=== PATIENT | female | born 1990 | race Two or more races ===

== ENCOUNTER 2018-06-24 18:03 | Emergency (ER) | payer OTHER ==
[~2018-06-24] VITALS: Ht 170.2 cm; Wt 98.3 kg
[~2018-06-24 18:03] MED LIST: ASPI-621 PO
[2018-06-24 18:51] LABS: BASOPHILS # (AUTO) 0.05 x10^3/uL (0-0.1); BASOPHILS % (AUTO) 1 % (0-1); EOSINOPHILS # (AUTO) 0.14 x10^3/uL (0-0.4); EOSINOPHILS % (AUTO) 1 % (1-7); LYMPHOCYTES # (AUTO) 2.77 x10^3/uL (1-3.4); LYMPHOCYTES % (AUTO) 27 % (22-44); MD NO; MEAN CORPUSCULAR HEMOGLOBIN 30.7 pg (27.0-34.8); MEAN CORPUSCULAR VOLUME 90.3 fL (80-100); MEAN PLATELET VOLUME 9.7 fL (7.4-10.4); MONOCYTES # (AUTO) 0.73 x10^3/uL (0.2-0.8); MONOCYTES % (AUTO) 7 % (2-9); NEUTROPHILS # (AUTO) 6.49 x10^3/uL (1.8-6.8); NEUTROPHILS % (AUTO) 64 % (42-75); PLATELET COUNT 301 x10^3/uL (130-400); RED BLOOD COUNT 4.54 x10^6/uL (3.82-5.3); RED CELL DISTRIBUTION WIDTH 12.9 % (9.6-15.2)
[2018-06-24 18:53] LABS: MICROSCOPIC NOT IND
[2018-06-24] MEDS ORDERED: ONDANSETRON 2MG/ML, 2ML ONE (18:55)
[2018-06-24 18:56] LABS: CULTURE INDICATED? NO
[2018-06-24] MEDS ORDERED: SODIUM CHLORIDE 0.9% 1,000ML IVBOLUS ONE (19:00)
[2018-06-24] MEDS ORDERED: ONDANSETRON 2MG/ML, 2ML IVPush ONE (19:00)
[2018-06-24 19:04] LABS: ALANINE AMINOTRANSFERASE 26 U/L (12-78); ALBUMIN 3.5 g/dL (3.4-5.0); ANION GAP 7 mmol/L (5-15); CALCIUM 9.1 mg/dL (8.5-10.1); CHLORIDE 107 mmol/L (98-107); CREATININE 0.89 mg/dL (0.55-1.02)
[2018-06-24 19:06] LABS: ALKALINE PHOSPHATASE 84 U/L (45-117); BILIRUBIN,TOTAL 0.2 mg/dL (0.2-1.0); TOTAL PROTEIN 8.2 g/dL (6.4-8.2)
[2018-06-24 19:38] LABS: HCG UR SG 1.019 (1.003-1.030)
[2018-06-24] MEDS ORDERED: MECLIZINE CHEWABLE 25 MG TAB PO ONE (20:30)
[2018-06-24] MEDS ORDERED: MECLIZINE CHEWABLE 25 MG TAB ONE (20:44)
[2018-06-24 20:55] VITALS: BP 104/64
== END 2018-06-24 20:58 | disposition home or self-care (01) ==
LOC: ED 18:47
DX: R19.7 Diarrhea, unspecified (principal); E86.0 Dehydration; R42 Dizziness and giddiness
CPT/HCPCS: 36415; 80053; 81003; 81025; 85025; 93005; 96361; 96374; 99285; J2405; J7030

== ENCOUNTER 2018-09-05 10:29 | Emergency (ER) | payer OTHER ==
[~2018-09-05] VITALS: Ht 170.2 cm; Wt 90.0 kg
[~2018-09-05 10:29] MED LIST changes: -ASPI-621 PO; +ASPI81TA45 PO
--- NOTE | 2018-09-05 10:39 | NUR ---
REPORT FROM GERSON BOOTH, ASSUME CARE OF PT AT THIS TIME. ERP IN TO SEE PT.
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
[2018-09-05] MEDS ORDERED: KETOROLAC 30 MG/1 ML ONE (10:51)
[2018-09-05] MEDS ORDERED: ONDANSETRON 2MG/ML, 2ML ONE (10:51)
[2018-09-05] MEDS ORDERED: HYDROmorphone 2 MG/ML, 1ML ONE (10:52)
[2018-09-05] MEDS ORDERED: ONDANSETRON 2MG/ML, 2ML IVPush ONE (11:00)
[2018-09-05] MEDS ORDERED: HYDROmorphone 1 MG/ML, 1ML IVPush PRN (11:00)
[2018-09-05] MEDS ORDERED: KETOROLAC 30 MG/1 ML IV ONE (11:00)
--- NOTE | 2018-09-05 11:00 | NUR ---
PT MEDICATED FOR "100"/10 PAIN PER ERP ORDER. PT IMMEDIATELY ASLEEP BUT AROUSABLE. PULSE OX READING DECREASE TO 89%, OXYGEN PLACED AT 3LITERS VIA NC WITH SAT IMPROVEMENT TO 94%. FAMILY/COWORKERS AT BS UPDATED ON POC. CALL LIGHT WITHIN REACH, WARM BLANKET PROVIDED.
--- NOTE | 2018-09-05 11:17 | NUR ---
[place] RN: PULLED INTO ROOM BY . PT APPEARS TO BE RIGID, LIPS CYANOTIC, AND PULSE OX OF 80%. PT LOGGED ROLLED TO RIGHT SIDE. RIDGIDITY LAST 30 SECONDS, O2 INCREASED TO 6 LPM VIA NC. POST EPISODE. PT LETHARGIC BUT RESPONSIVE TO PAIN. O2 SAT AT 96% ON 4 LPM VIA NC. SEIZURE PRECAUTIONS IN PLACE AND DR. PIERRE MADE AWARE OF THE SITUATION.
--- NOTE | 2018-09-05 11:29 | NUR ---
PT TO CT.
--- NOTE | 2018-09-05 11:52 | NUR ---
PT BACK FROM CT. PT SLEEPING SOUNDLY. VSS/UPDATED IN COMPUTER. CALL LIGHT WITHIN REACH.
--- NOTE | 2018-09-05 12:21 | NUR ---
ALL RESULTS BACK, PT FOR RECHECK.
--- NOTE | 2018-09-05 12:58 | NUR ---
PT ASSISTED UP TO BSC, PT ABLE TO BEAR WEIGHT WITH 2 PERSON ASSIST AT THIS TIME.. WILL CONTINUE TO MONITOR AND ASSESS FOR SAFE DISCHARGE. WORK COMP PAPERS TO ERP.
[2018-09-05 14:04] VITALS: BP 122/64
== END 2018-09-05 14:08 | disposition home or self-care (01) ==
LOC: ED 14:03
DX: G89.11 Acute pain due to trauma (principal); M54.5 Low back pain; M25.551 Pain in right hip; W18.30XA Fall on same level, unspecified, initial encounter; Y93.89 Activity, other specified; Y92.69 Other specified industrial and construction area as the place of occurrence of the external cause; Y99.8 Other external cause status
CPT/HCPCS: 70450; 72131; 73700; 96374; 96375; 99284; J1170; J1885; J2405

== ENCOUNTER 2018-09-10 09:00 | Emergency (ER) | payer OTHER ==
[~2018-09-10] VITALS: Ht 170.2 cm; Wt 99.1 kg
[2018-09-10 09:20] VITALS: BP 114/74
== END 2018-09-10 11:56 | disposition home or self-care (01) ==
LOC: ED 11:50
DX: S39.012A Strain of muscle, fascia and tendon of lower back, initial encounter (principal); M54.41 Lumbago with sciatica, right side; W18.30XA Fall on same level, unspecified, initial encounter; Y93.89 Activity, other specified; Y92.89 Other specified places as the place of occurrence of the external cause; Y99.8 Other external cause status
CPT/HCPCS: 99281

== ENCOUNTER 2019-01-28 08:20 | Emergency (ER) | payer OTHER ==
[~2019-01-28] VITALS: Ht 170.2 cm; Wt 97.7 kg
--- NOTE | 2019-01-28 08:57 | NUR ---
SOFTWARE TEST DEVELOPER: PT TO ROOM FROM [facility], AMBULATORY WITH STEADY GAIT
[2019-01-28] MEDS ORDERED: ONDANSETRON 2MG/ML, 2ML IVPush ONE (09:30)
[2019-01-28] MEDS ORDERED: KETOROLAC 30 MG/1 ML IVPush ONE (09:30)
[2019-01-28] MEDS ORDERED: SODIUM CHLORIDE 0.9% 1,000ML IVBOLUS ONE (09:30)
[2019-01-28] MEDS ORDERED: DICYCLOMINE 10 MG/ML, 2ML IM ONE (09:30)
[2019-01-28] MEDS ORDERED: DICYCLOMINE 10 MG/ML, 2ML ONE (09:48)
[2019-01-28] MEDS ORDERED: ONDANSETRON 2MG/ML, 2ML ONE (09:48)
[2019-01-28] MEDS ORDERED: KETOROLAC 30 MG/1 ML ONE (09:48)
[2019-01-28 09:55] LABS: MD NO
[2019-01-28 10:05] LABS: ALBUMIN 3.3 g/dL (3.4-5.0); ANION GAP 6 mmol/L (5-15); CALCIUM 8.7 mg/dL (8.5-10.1); CHLORIDE 107 mmol/L (98-107)
[2019-01-28 10:12] LABS: ALANINE AMINOTRANSFERASE 19 U/L (12-78); ALKALINE PHOSPHATASE 88 U/L (45-117); BILIRUBIN,TOTAL 0.4 mg/dL (0.2-1.0); CREATININE 0.81 mg/dL (0.55-1.02); TOTAL PROTEIN 8.4 g/dL (6.4-8.2)
[2019-01-28 10:22] LABS: MICROSCOPIC NOT IND
[2019-01-28 10:28] LABS: CULTURE INDICATED? NO
[2019-01-28 10:42] LABS: BASOPHILS # (AUTO) 0.03 x10^3/uL (0-0.1); BASOPHILS % (AUTO) 0 % (0-1); EOSINOPHILS # (AUTO) 0.01 x10^3/uL (0-0.4); EOSINOPHILS % (AUTO) 0 % (1-7); LYMPHOCYTES # (AUTO) 1.85 x10^3/uL (1-3.4); LYMPHOCYTES % (AUTO) 15 % (22-44); MEAN CORPUSCULAR HEMOGLOBIN 28.5 pg (27.0-34.8); MEAN CORPUSCULAR VOLUME 89.2 fL (80-100); MEAN PLATELET VOLUME 10.5 fL (7.4-10.4); MONOCYTES % (AUTO) 8 % (2-9); NEUTROPHILS # (AUTO) 9.56 x10^3/uL (1.8-6.8); NEUTROPHILS % (AUTO) 77 % (42-75); PLATELET COUNT 259 x10^3/uL (130-400); RED BLOOD COUNT 5.06 x10^6/uL (3.82-5.3); RED CELL DISTRIBUTION WIDTH 14.3 % (9.6-15.2)
[2019-01-28 11:13] VITALS: BP 92/62
== END 2019-01-28 11:37 | disposition home or self-care (01) ==
LOC: ED 09:24
DX: R11.2 Nausea with vomiting, unspecified (principal); R19.7 Diarrhea, unspecified; J06.9 Acute upper respiratory infection, unspecified; J20.8 Acute bronchitis due to other specified organisms
CPT/HCPCS: 36415; 71045; 80053; 81003; 83690; 84703; 85025; 93005; 96361; 96372; 96374; 96375; 99284; J0500; J1885; J2405; J7030

== ENCOUNTER 2019-02-04 08:51 | Emergency (ER) | payer OTHER ==
[~2019-02-04] VITALS: Ht 170.2 cm; Wt 100.6 kg
--- NOTE | 2019-02-04 09:08 | NUR ---
PT WITH C/O PERSISTENT COUGH, WITH SOB X 10 DAYS. SEEN IN ED LAST WEEK FOR N/V/D AND COUGH. ALL SYMPTOMS OTHER THAN THE COUGH HAVE RESSOLVED. DR. JOHNSTON AT BEDSIDE. ASSESSMENT REVIEWED AND POC DISCUSSED. CALL LIGHT W/I REACH
[2019-02-04] MEDS ORDERED: ACETAMINOPHEN 500 MG TABLET PO ONE (09:30)
[2019-02-04] MEDS ORDERED: BENZONATATE 100 MG CAPSULE PO ONE (09:30)
[2019-02-04 09:33] LABS: BASOPHILS # (AUTO) 0.06 x10^3/uL (0-0.1); BASOPHILS % (AUTO) 1 % (0-1); EOSINOPHILS # (AUTO) 0.19 x10^3/uL (0-0.4); EOSINOPHILS % (AUTO) 2 % (1-7); LYMPHOCYTES # (AUTO) 1.82 x10^3/uL (1-3.4); LYMPHOCYTES % (AUTO) 22 % (22-44); MD NO; MEAN CORPUSCULAR HEMOGLOBIN 27.9 pg (27.0-34.8); MEAN CORPUSCULAR HGB CONC 32.4 g/dL (32.4-35.8); MEAN CORPUSCULAR VOLUME 86.3 fL (80-100); MEAN PLATELET VOLUME 9.5 fL (7.4-10.4); MONOCYTES # (AUTO) 0.63 x10^3/uL (0.2-0.8); MONOCYTES % (AUTO) 8 % (2-9); NEUTROPHILS # (AUTO) 5.76 x10^3/uL (1.8-6.8); NEUTROPHILS % (AUTO) 68 % (42-75); PLATELET COUNT 274 x10^3/uL (130-400); RED BLOOD COUNT 4.44 x10^6/uL (3.82-5.3); RED CELL DISTRIBUTION WIDTH 13.6 % (9.6-15.2)
[2019-02-04 09:45] LABS: ANION GAP 7 mmol/L (5-15); CALCIUM 8.5 mg/dL (8.5-10.1); CHLORIDE 109 mmol/L (98-107)
[2019-02-04] MEDS ORDERED: BENZONATATE 100 MG CAPSULE ONE (09:48)
[2019-02-04] MEDS ORDERED: ACETAMINOPHEN 500 MG TABLET ONE (09:48)
[2019-02-04 10:52] VITALS: BP 122/73
--- NOTE | 2019-02-04 10:54 | NUR ---
Patient/Caregiver given discharge instructions and they have confirmed that they understand the instructions. Patient ambulatory with steady gait.
== END 2019-02-04 10:54 | disposition home or self-care (01) ==
LOC: ED 10:43
DX: B34.9 Viral infection, unspecified (principal)
CPT/HCPCS: 36415; 71045; 80048; 85025; 99284

== ENCOUNTER 2019-03-10 16:25 | Emergency (ER) | payer OTHER ==
[~2019-03-10] VITALS: Ht 170.2 cm; Wt 99.8 kg
[2019-03-10 16:51] VITALS: BP 125/75
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
[2019-03-10] MEDS ORDERED: KETOROLAC 30 MG/1 ML ONE (16:57)
[2019-03-10] MEDS ORDERED: CEPHALEXIN 500 MG CAPSULE ONE (16:57)
[2019-03-10] MEDS ORDERED: SULFAMETH./TRIMETHOPRIM DS 800MG/160MG TABLET ONE (16:57)
--- NOTE | 2019-03-10 17:03 | NUR ---
PT MEDICATED PER MD ORDER.
[2019-03-10 17:19] LABS: BASOPHILS # (AUTO) 0.02 x10^3/uL (0-0.1); BASOPHILS % (AUTO) 0 % (0-1); EOSINOPHILS # (AUTO) 0.47 x10^3/uL (0-0.4); EOSINOPHILS % (AUTO) 5 % (1-7); LYMPHOCYTES # (AUTO) 1.67 x10^3/uL (1-3.4); LYMPHOCYTES % (AUTO) 18 % (22-44); MD NO; MEAN CORPUSCULAR HEMOGLOBIN 28.3 pg (27.0-34.8); MEAN CORPUSCULAR HGB CONC 32.3 g/dL (32.4-35.8); MEAN CORPUSCULAR VOLUME 87.5 fL (80-100); MEAN PLATELET VOLUME 9.8 fL (7.4-10.4); MONOCYTES # (AUTO) 0.72 x10^3/uL (0.2-0.8); MONOCYTES % (AUTO) 8 % (2-9); NEUTROPHILS # (AUTO) 6.44 x10^3/uL (1.8-6.8); NEUTROPHILS % (AUTO) 69 % (42-75); PLATELET COUNT 279 x10^3/uL (130-400); RED BLOOD COUNT 4.67 x10^6/uL (3.82-5.3); RED CELL DISTRIBUTION WIDTH 15.6 % (9.6-15.2)
[2019-03-10 17:29] LABS: ANION GAP 6 mmol/L (5-15); CALCIUM 8.6 mg/dL (8.5-10.1); CHLORIDE 109 mmol/L (98-107); CREATININE 0.93 mg/dL (0.55-1.02)
[2019-03-10] MEDS ORDERED: CEPHALEXIN 500 MG CAPSULE PO ONE (18:00)
[2019-03-10] MEDS ORDERED: KETOROLAC 30 MG/1 ML IM ONE (18:00)
[2019-03-10] MEDS ORDERED: SULFAMETH./TRIMETHOPRIM DS 800MG/160MG TABLET PO ONE (18:00)
--- NOTE | 2019-03-10 18:16 | NUR ---
Patient/Caregiver given discharge instructions and they have confirmed that they understand the instructions. Patient ambulatory with steady gait.
== END 2019-03-10 18:17 | disposition home or self-care (01) ==
LOC: ED 16:59
DX: L03.115 Cellulitis of right lower limb (principal)
CPT/HCPCS: 36415; 80048; 85025; 96372; 99283; J1885

== ENCOUNTER 2019-03-14 16:35 | Emergency (ER) | payer OTHER ==
[~2019-03-14] VITALS: Ht 170.2 cm; Wt 100.6 kg
[2019-03-14 16:52] VITALS: BP 115/77
== END 2019-03-14 17:25 | disposition home or self-care (01) ==
LOC: ED 17:16
DX: T78.40XA Allergy, unspecified, initial encounter (principal); X58.XXXA Exposure to other specified factors, initial encounter
CPT/HCPCS: 99283

== ENCOUNTER 2019-08-04 04:32 | Emergency (ER) | payer OTHER ==
[~2019-08-04] VITALS: Ht 172.7 cm; Wt 93.8 kg
--- NOTE | 2019-08-04 04:54 | NUR ---
PT PRESENT WITH CP TO LEFT SIDE OF CHEST THAT RADIATES TO LEFT ARM AND DOWN BACK. STATES IT STARTED YESTERDAY. PT HAS COUGH AND SORE THROAT SINCE YESTERDAY. STATES SHE WAS WORRIED AT HOME WHEN HER HEART WAS GOING FAST ACCORDING TO HER SMART WATCH. PT CURRENTLY RESTING ON GURNEY. CONNECTED TO MONITOR. PROVIDED WITH WARM BLANKET. NADN. HERNANDEZ.
[2019-08-04] MEDS ORDERED: KETOROLAC 30 MG/1 ML ONE (05:11)
[2019-08-04] MEDS ORDERED: ONDANSETRON 2MG/ML, 2ML ONE (05:11)
[2019-08-04] MEDS ORDERED: LORazepam 2 MG/ML, 1ML ONE (05:12)
[2019-08-04] MEDS ORDERED: LORazepam 2 MG/ML, 1ML IVPush ONE (05:30)
[2019-08-04] MEDS ORDERED: SODIUM CHLORIDE FLUSH 10ML SYR IVF ONE (05:30)
[2019-08-04] MEDS ORDERED: ONDANSETRON 2MG/ML, 2ML IVPush ONE (05:30)
[2019-08-04] MEDS ORDERED: KETOROLAC 30 MG/1 ML IVPush ONE (05:30)
--- NOTE | 2019-08-04 05:38 | NUR ---
PIV STARTED. BLOOD DRAWN. PT MEDICATED PER EMAR. RESTING ON GURNEY. STATES SHE IS FEELING BETTER. NADN. VSS. DENIES NEEDS AT THIS TIME.
[2019-08-04 06:09] LABS: BASOPHILS # (AUTO) 0.04 x10^3/uL (0-0.1); BASOPHILS % (AUTO) 1 % (0-1); EOSINOPHILS # (AUTO) 0.02 x10^3/uL (0-0.4); EOSINOPHILS % (AUTO) 0 % (1-7); LYMPHOCYTES # (AUTO) 0.91 x10^3/uL (1-3.4); LYMPHOCYTES % (AUTO) 14 % (22-44); MD NO; MEAN CORPUSCULAR HEMOGLOBIN 29.2 pg (27.0-34.8); MEAN CORPUSCULAR HGB CONC 32.3 g/dL (32.4-35.8); MEAN CORPUSCULAR VOLUME 90.4 fL (80-100); MEAN PLATELET VOLUME 10.9 fL (7.4-10.4); MONOCYTES % (AUTO) 15 % (2-9); NEUTROPHILS # (AUTO) 4.61 x10^3/uL (1.8-6.8); NEUTROPHILS % (AUTO) 70 % (42-75); PLATELET COUNT 225 x10^3/uL (130-400)
[2019-08-04 06:14] LABS: ALBUMIN 3.4 g/dL (3.4-5.0); ANION GAP 10 mmol/L (5-15); CALCIUM 8.8 mg/dL (8.5-10.1); CHLORIDE 109 mmol/L (98-107)
[2019-08-04 06:19] LABS: TROPONIN I < 0.015 ng/mL (0.000-0.045)
--- NOTE | 2019-08-04 06:29 | NUR ---
PT RESTING ON GURNEY. DOUGLAS. VSS. STATES SHE IS FEELING BETTER. DENIES NEEDS.
--- NOTE | 2019-08-04 06:46 | NUR ---
RECEIVED REPORT FROM EVELYN BOOTH, PLAN OF CARE DISCUSSED
[2019-08-04 07:09] VITALS: BP 98/57
--- NOTE | 2019-08-04 07:09 | NUR ---
Patient/Caregiver given discharge instructions and they have confirmed that they understand the instructions. Patient ambulatory with steady gait.
== END 2019-08-04 07:11 | disposition home or self-care (01) ==
LOC: ED 06:17
DX: R07.89 Other chest pain (principal); B34.9 Viral infection, unspecified
CPT/HCPCS: 36415; 71046; 80048; 82040; 83880; 84484; 85025; 93005; 96374; 96375; 99284; J1885; J2060; J2405

== ENCOUNTER 2019-12-14 16:17 | Emergency (ER) | payer OTHER ==
[~2019-12-14] VITALS: Ht 172.7 cm; Wt 93.0 kg
--- NOTE | 2019-12-14 16:46 | NUR ---
PT AMBULATED BACK TO ROOM, CHANGED INTO GOWN, EDUCATED ON NEED TO AVOID WARM BLANKETS AT THIS TIME TO LOWER TEMPERATURE. CALL LIGHT WITHIN REACH, WAITING FOR MD KIMBALL. PT DENIES ADDITIONAL NEEDS AT THIS TIME. EYES OPEN, RESPIRATIONS HEAR, SOB NOTED. WCTM.
[2019-12-14] MEDS ORDERED: LEVO50TA5 PO (16:49)
[2019-12-14] MEDS ORDERED: SODIUM CHLORIDE FLUSH 10ML SYR IVF ONE (17:00)
[2019-12-14] MEDS ORDERED: ACETAMINOPHEN 500 MG TABLET ONE (17:23)
--- NOTE | 2019-12-14 17:26 | NUR ---
PT RESTING IN [facility], [facility], STATES SHE "NEEDS A BLANKEY", PT INFORMED THAT CURRENTLY WE DONT WANT TO GIVE HER BLANKETS DUE TO FEVER. P/W/D, ON MONITOR, WCTM. MEDICATED PER OCT. SEE MAR FOR DETAILS
[2019-12-14] MEDS ORDERED: ACETAMINOPHEN 500 MG TABLET PO ONE (17:30)
[2019-12-14 17:38] LABS: BASOPHILS # (AUTO) 0.03 x10^3/uL (0-0.1); BASOPHILS % (AUTO) 0 % (0-1); EOSINOPHILS # (AUTO) 0.08 x10^3/uL (0-0.4); EOSINOPHILS % (AUTO) 1 % (1-7); LYMPHOCYTES # (AUTO) 1.65 x10^3/uL (1-3.4); LYMPHOCYTES % (AUTO) 23 % (22-44); MD NO; MEAN CORPUSCULAR HEMOGLOBIN 29.2 pg (27.0-34.8); MEAN CORPUSCULAR HGB CONC 32.8 g/dL (32.4-35.8); MEAN CORPUSCULAR VOLUME 89.1 fL (80-100); MONOCYTES % (AUTO) 6 % (2-9); NEUTROPHILS # (AUTO) 5.04 x10^3/uL (1.8-6.8); NEUTROPHILS % (AUTO) 70 % (42-75); PLATELET COUNT 251 x10^3/uL (130-400); RED BLOOD COUNT 5.26 x10^6/uL (3.82-5.3); RED CELL DISTRIBUTION WIDTH 13.7 % (9.6-15.2)
[2019-12-14 17:42] LABS: ALANINE AMINOTRANSFERASE 19 U/L (12-78); ALBUMIN 3.7 g/dL (3.4-5.0); ANION GAP 6 mmol/L (5-15); CALCIUM 9.3 mg/dL (8.5-10.1); CHLORIDE 109 mmol/L (98-107); CREATININE 0.71 mg/dL (0.55-1.02)
[2019-12-14 17:45] LABS: ALKALINE PHOSPHATASE 81 U/L (45-117); BILIRUBIN,TOTAL 0.6 mg/dL (0.2-1.0); TOTAL PROTEIN 8.8 g/dL (6.4-8.2)
--- NOTE | 2019-12-14 17:52 | NUR ---
temp 98.2f. pt given warm blanket due to temperature WNL, pt is P/W/D. Waiting on recheck post labs and rad results. OMARITM
[2019-12-14] MEDS ORDERED: CEFTRIAXONE PMX 1GM/50ML 50 ML ONE (17:56)
[2019-12-14] MEDS ORDERED: AZITHROMYCIN 500 MG in SODIUM CHLORIDE 0.9% 250 ML IV ONE (18:00)
[2019-12-14] MEDS ORDERED: CEFTRIAXONE PMX 1GM/50ML 50 ML IV ONE (18:00)
--- NOTE | 2019-12-14 18:32 | NUR ---
PT MEDICATED PER MAR, SEE MAR FOR DETAILS. RESTING IN GURNEY, NAD, DENIES ADDITIONAL NEEDS. STATES THAT HER PAIN IS "A LOT LESS." CALL LIGHT IN LAP. P/W/D, VSS, WCTM.
[2019-12-14] MEDS ORDERED: MORPHINE SULFATE 4 MG/ML, 1ML ONE (18:53)
[2019-12-14] MEDS ORDERED: MORPHINE SULFATE 4 MG/ML, 1ML IVPush ONE (19:00)
--- NOTE | 2019-12-14 19:03 | NUR ---
Bedside report given to Christine BOOTH. Pt care transferred at this time.
--- NOTE | 2019-12-14 19:10 | NUR ---
PT RESTING ON GURNEY, ABX INFUSING WITHOUT DIFFICULTY AT THIS TIME. PT EXPRESSES NO FURTHER NEEDS AT THIS TIME.
[2019-12-14 20:23] VITALS: BP 101/66
--- NOTE | 2019-12-14 20:23 | NUR ---
Patient/Caregiver given discharge instructions and they have confirmed that they understand the instructions. Patient ambulatory with steady gait. piv dc proior to pt leaving facility
== END 2019-12-14 20:39 | disposition home or self-care (01) ==
LOC: ED 16:48
DX: J18.9 Pneumonia, unspecified organism (principal); J06.9 Acute upper respiratory infection, unspecified
CPT/HCPCS: 36415; 71045; 80053; 82728; 83605; 83615; 84145; 85025; 85379; 87040; 96365; 96367; 96375; 99285; J0456; J0696; J2270; J7050

== ENCOUNTER 2020-04-24 22:46 | Emergency (ER) | payer SELFPAY ==
[~2020-04-24] VITALS: Ht 172.7 cm; Wt 98.9 kg
[~2020-04-24 22:46] MED LIST changes: +LEVO50TA5 PO
[2020-04-24] MEDS ORDERED: SODIUM CHLORIDE FLUSH 10ML SYR IVF ONE (23:00)
[2020-04-24] MEDS ORDERED: ONDANSETRON 2MG/ML, 2ML IVPush ONE (23:00)
[2020-04-24] MEDS ORDERED: MORPHINE SULFATE 4 MG/ML, 1ML IVPush PRN (23:00)
--- NOTE | 2020-04-24 23:41 | NUR ---
PT AMBULATED STEADILY TO ROOM WITH RN AND FAMILY MEMBER. PT REPORTS RLQ ABD PAIN X TODAY, SEVERE AND CONSTANT. +NAUSEA. DENIES DYSURIA/VAGINAL DC OR BLEEDING/DIARRHEA/FEVER. LMP: 04/15. UA COLLECTED AND SENT. LAB IN TO DRAW. BP/SPO2 MONITORING IN PLACE
[2020-04-24] MEDS ORDERED: ONDANSETRON 2MG/ML, 2ML ONE (23:45)
[2020-04-24] MEDS ORDERED: MORPHINE SULFATE 4 MG/ML, 1ML ONE (23:45)
[2020-04-24 23:56] VITALS: BP 116/62
--- NOTE | 2020-04-24 23:57 | NUR ---
IV ESTABLISHED. PT MEDICATED PER EMAR FOR 10/10 PAIN AND NAUSEA. PT PLACED ON 2L O2 BY NC FOR SUPPORT FOLLOWING RX
[2020-04-24 23:58] LABS: MICROSCOPIC NOT IND
[2020-04-25 00:06] LABS: ALBUMIN 3.2 g/dL (3.4-5.0); ANION GAP 5 mmol/L (5-15); CALCIUM 8.8 mg/dL (8.5-10.1); CHLORIDE 109 mmol/L (98-107)
[2020-04-25 00:13] LABS: ALANINE AMINOTRANSFERASE 19 U/L (12-78); ALKALINE PHOSPHATASE 86 U/L (45-117); BILIRUBIN,TOTAL 0.3 mg/dL (0.2-1.0); CREATININE 0.74 mg/dL (0.55-1.02); TOTAL PROTEIN 7.6 g/dL (6.4-8.2)
[2020-04-25 00:19] LABS: BASOPHILS # (AUTO) 0.03 x10^3/uL (0-0.1); BASOPHILS % (AUTO) 0 % (0-1); EOSINOPHILS # (AUTO) 0.25 x10^3/uL (0-0.4); EOSINOPHILS % (AUTO) 2 % (1-7); LYMPHOCYTES # (AUTO) 2.28 x10^3/uL (1-3.4); LYMPHOCYTES % (AUTO) 21 % (22-44); MD NO; MEAN CORPUSCULAR HEMOGLOBIN 29.7 pg (27.0-34.8); MEAN CORPUSCULAR HGB CONC 32.7 g/dL (32.4-35.8); MONOCYTES # (AUTO) 0.85 x10^3/uL (0.2-0.8); MONOCYTES % (AUTO) 8 % (2-9); NEUTROPHILS # (AUTO) 7.34 x10^3/uL (1.8-6.8); NEUTROPHILS % (AUTO) 68 % (42-75); PLATELET COUNT 253 x10^3/uL (130-400); RED BLOOD COUNT 4.54 x10^6/uL (3.82-5.3); RED CELL DISTRIBUTION WIDTH 13.9 % (9.6-15.2)
--- NOTE | 2020-04-25 00:50 | NUR ---
PT TO CT BY WHEELCHAIR.
--- NOTE | 2020-04-25 01:45 | NUR ---
PT REPORTS LITTLE IMPROVEMENT IN PAIN AFTER MORPHINE AND IMPROVED NAUSEA. DENIES NEED FOR ADDITIONAL DOSE OF PAIN MEDICATIONS. DC EDUCATION PROVIDED, PT DEMONSTRATES UNDERSTANDING. PT AMBULATED STEADILY TO DC WITH RN AND MOTHER. MOTHER TO TRANSPORT PT HOME.
[2020-04-25] MEDS ORDERED: OMNIPAQUE 350 MG/ML, 100ML BOTTLE ONE (05:12)
== END 2020-04-25 01:48 | disposition home or self-care (01) ==
LOC: ED 04-25 01:09
DX: R10.31 Right lower quadrant pain (principal)
CPT/HCPCS: 36415; 74177; 80053; 81003; 83690; 84703; 85025; 96374; 96375; 99285; J2270; J2405; Q9967

== ENCOUNTER 2020-05-24 17:37 | Emergency (ER) | payer MEDICAID, OTHER ==
[~2020-05-24] VITALS: Ht 172.7 cm; Wt 102.0 kg
--- NOTE | 2020-05-24 17:50 | NUR ---
BREAK RN: EBENEZER PATTERSON AT BEDSIDE TO [place]HANA PT. CONTACT WITH PT. 30 YR OLD FEMALE HERE WITH C/O 5 WEEKS , VAGINAL BLEEDING "WHEN I WIPE MYSELF" BLEEDING BEGAN TODAY. DENIES CRAMPING. PT TO BR, GAIT STEADY
--- NOTE | 2020-05-24 17:54 | NUR ---
REPORT TO MADELYN BOOTH
--- NOTE | 2020-05-24 18:01 | NUR ---
PT AMBULATED TO RESTROOM WITH STEADY GAIT TO PROVIDE URINE SAMPLE. UA COLLECTED AND SENT WITH PRE OWNED SALES MANAGER. PRE OWNED SALES MANAGER COLLECTED LABS. PT TO US. AT BEDSIDE.
[2020-05-24 18:15] LABS: BASOPHILS # (AUTO) 0.05 x10^3/uL (0-0.1); BASOPHILS % (AUTO) 0 % (0-1); EOSINOPHILS # (AUTO) 0.25 x10^3/uL (0-0.4); EOSINOPHILS % (AUTO) 2 % (1-7); LYMPHOCYTES # (AUTO) 2.07 x10^3/uL (1-3.4); LYMPHOCYTES % (AUTO) 18 % (22-44); MD NO; MEAN CORPUSCULAR HEMOGLOBIN 30.2 pg (27.0-34.8); MEAN CORPUSCULAR HGB CONC 33.6 g/dL (32.4-35.8); MEAN PLATELET VOLUME 9.9 fL (7.4-10.4); MONOCYTES # (AUTO) 0.89 x10^3/uL (0.2-0.8); MONOCYTES % (AUTO) 8 % (2-9); NEUTROPHILS # (AUTO) 8.29 x10^3/uL (1.8-6.8); NEUTROPHILS % (AUTO) 72 % (42-75); PLATELET COUNT 250 x10^3/uL (130-400); RED BLOOD COUNT 4.62 x10^6/uL (3.82-5.3); RED CELL DISTRIBUTION WIDTH 13.9 % (9.6-15.2)
[2020-05-24 18:17] LABS: MICROSCOPIC INDICATED
[2020-05-24 18:24] LABS: ALBUMIN 3.3 g/dL (3.4-5.0); ANION GAP 5 mmol/L (5-15); CHLORIDE 106 mmol/L (98-107); CREATININE 0.73 mg/dL (0.55-1.02)
[2020-05-24 18:39] VITALS: BP 107/64
--- NOTE | 2020-05-24 18:40 | NUR ---
PT BACK FROM US. PT RECONNECTED TO MONITORING. CALL LIGHT IN REACH. SPOUSE AT BEDSIDE.
--- NOTE | 2020-05-24 18:50 | NUR ---
ALL RESULTS ARE BACK AT THIS TIME. CHART UP FOR RECHECK.
== END 2020-05-24 19:28 | disposition home or self-care (01) ==
LOC: ED 18:51
DX: O46.91 Antepartum hemorrhage, unspecified, first trimester (principal); Z3A.01 Less than 8 weeks gestation of pregnancy
CPT/HCPCS: 36415; 76801; 80048; 81001; 82040; 84702; 85025; 86901; 87086; 99284

== ENCOUNTER 2020-06-20 15:06 | Emergency (ER) | payer MEDICAID ==
[~2020-06-20] VITALS: Ht 172.7 cm; Wt 100.8 kg
--- NOTE | 2020-06-20 15:45 | NUR ---
ESTATE TAX EXAMINER: PT TO ROOM FROM [facility]
[2020-06-20 16:10] LABS: MICROSCOPIC AUTO
--- NOTE | 2020-06-20 16:12 | NUR ---
pt to us. ua/labs pending. as
[2020-06-20 16:21] LABS: BASOPHILS % (AUTO) 0 % (0-1); EOSINOPHILS % (AUTO) 2 % (1-7); LYMPHOCYTES % (AUTO) 13 % (22-44); MEAN CORPUSCULAR HEMOGLOBIN 29.7 pg (27.0-34.8); MEAN CORPUSCULAR HGB CONC 32.9 g/dL (32.4-35.8); MEAN PLATELET VOLUME 9.3 fL (7.4-10.4); MONOCYTES % (AUTO) 8 % (2-9); NEUTROPHILS % (AUTO) 77 % (42-75); PLATELET COUNT 225 x10^3/uL (130-400); RED BLOOD COUNT 4.29 x10^6/uL (3.82-5.3); RED CELL DISTRIBUTION WIDTH 13.2 % (9.6-15.2)
[2020-06-20 16:22] LABS: ALANINE AMINOTRANSFERASE 17 U/L (12-78); ALBUMIN 3.1 g/dL (3.4-5.0); ANION GAP 5 mmol/L (5-15); CALCIUM 8.3 mg/dL (8.5-10.1); CHLORIDE 104 mmol/L (98-107); CREATININE 0.62 mg/dL (0.55-1.02)
[2020-06-20 16:24] LABS: MD NO
[2020-06-20 16:40] LABS: ALKALINE PHOSPHATASE 70 U/L (45-117); BILIRUBIN,TOTAL 0.4 mg/dL (0.2-1.0); TOTAL PROTEIN 7.5 g/dL (6.4-8.2)
--- NOTE | 2020-06-20 17:35 | NUR ---
BACK FROM US NO COMPLAINTS. RECHECK.
[2020-06-20 17:54] VITALS: BP 111/62
== END 2020-06-20 17:56 | disposition home or self-care (01) ==
LOC: ED 15:52
DX: O36.4XX0 Maternal care for intrauterine death, not applicable or unspecified (principal); R10.30 Lower abdominal pain, unspecified; Z3A.01 Less than 8 weeks gestation of pregnancy; Z86.39 Personal history of other endocrine, nutritional and metabolic disease
CPT/HCPCS: 36415; 76801; 80053; 81001; 84702; 85025; 87086; 99284